=== PATIENT | male | born 1975 | race Two or more races ===

== ENCOUNTER 2024-02-26 23:59 | Emergency (ER) | payer SELFPAY ==
[2024-02-27 00:01] VITALS: BMI 31.0
--- NOTE | 2024-02-27 00:04 | PC.NURSE ---
[facility] .
[2024-02-27 02:14] VITALS: BP 158/98; PULSE 91; RESP 18; TEMP 36.9; O2SAT 98
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
[2024-02-27 05:01] VITALS: BP 149/90; PULSE 86; RESP 18; TEMP 36.9; O2SAT 98
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
== END 2024-02-27 07:46 | disposition home or self-care (01) ==
PROVIDERS: Emergency Provider Emergency Medicine
DX: S19.9XXA Unspecified injury of neck, initial encounter (principal); S09.90XA Unspecified injury of head, initial encounter; S49.92XA Unspecified injury of left shoulder and upper arm, initial encounter; V89.9XXA Person injured in unspecified vehicle accident, initial encounter
CPT/HCPCS: 70450; 72125; 73030; 99284